=== PATIENT | female | born 1995 | race Caucasian/White ===

== ENCOUNTER 2019-01-07 12:18 | Emergency (ER) | payer BC, OTHER ==
[2019-01-07 13:36] LABS: ABS Eosinophils 0.1 10^3/ul (0-0.6); ABS Lymphocytes 1.5 10^3/ul (1.0-4.8); ABS Monocytes 0.5 10^3/ul (0-0.8); ABS Neutrophils 3.6 10^3/ul (1.5-7.7); Eosinophil % 1.8 %; Hematocrit 38 % (35-47); Hemoglobin 12.5 g/dL (12.0-16.0); Lymphocyte % 26.5 %; Mean Corpuscular HGB Conc 33 g/dL (31-36); Mean Corpuscular Hemoglobin 28 pg (27-31); Mean Corpuscular Volume 85 fL (80-97); Mean Platelet Volume 7.6 fL (7.4-10.4); Platelet Count 225 10^3/uL (150-450); Red Blood Count 4.43 10^6 /uL (3.70-4.87); Red Cell Distribution Width 14 % (10-15); White Blood Count 5.7 10^3/uL (3.5-10.8)
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
[2019-01-07 13:45] LABS: ALT 14 U/L (7-52); AST 18 U/L (13-39); Albumin 4.7 g/dL (3.2-5.2); Albumin/Globulin Ratio 1.5 (1-3); Alkaline Phosphatase 60 U/L (34-104); Anion Gap 5 mmol/L (2-11); BUN/Creatinine Ratio 11.3 (8-20); Blood Urea Nitrogen 7 mg/dL (6-24); CO2 Carbon Dioxide 29 mmol/L (22-32); Calcium 9.3 mg/dL (8.6-10.3); Chloride 105 mmol/L (101-111); EGFR African American 144.3 (>60); EGFR Non-African American 119.3 (>60); Globulin 3.1 g/dL (2-4); Glucose 78 mg/dL (70-100); Potassium 3.8 mmol/L (3.5-5.0); Sodium 139 mmol/L (135-145); Total Protein 7.8 g/dL (6.4-8.9)
[2019-01-07 13:50] LABS: Acetaminophen < 15 mcg/mL; Alcohol < 10 mg/dL (<10); Salicylate < 2.50 mg/dL (<30)
[2019-01-07 14:05] LABS: TSH (Thyroid Stimulating Horm) 1.29 mcIU/mL (0.34-5.60)
[2019-01-07 14:07] LABS: Urine Appearance Cloudy; Urine Bacteria Absent (Absent); Urine Bilirubin Negative (Negative); Urine Blood Negative (Negative); Urine Color Yellow; Urine Glucose Negative (Negative); Urine Ketones Negative (Negative); Urine Nitrite Negative (Negative); Urine Protein Negative (Negative); Urine Red Blood Cell 1+(3-5/hpf) (Absent); Urine Squamous Epithelial Cell Present (Absent); Urine Urobilinogen Negative (Negative); Urine White Blood Cell 1+(6-10/hpf) (Absent)
[2019-01-07 14:36] LABS: Urine Benzodiazepine Screen None Detected (None Detect); Urine Opiates Screen None Detected (None Detect)
[2019-01-07 17:30] VITALS: BP 115/69
== END 2019-01-07 17:29 | disposition home or self-care (01) ==
LOC: ED 12:18
DX: F43.25 Adjustment disorder with mixed disturbance of emotions and conduct (principal); Z79.899 Other long term (current) drug therapy; F50.9 Eating disorder, unspecified; F41.9 Anxiety disorder, unspecified; F32.9 Major depressive disorder, single episode, unspecified
CPT/HCPCS: 36415; 80053; 80307; 80320; 80329; 81003; 81015; 84443; 85025; 87086; 87088; 99284; G0480

== ENCOUNTER 2023-11-10 15:44 | Inpatient (IN) ==
[2023-11-10] MEDS ORDERED: Lidocaine 1% VIAL 10 MG/ML 30 ML VIAL INJ PRN (17:36)
[2023-11-10 18:28] LABS: Urine Benzodiazepine Screen None Detected (None Detect); Urine Cannabinoids Screen None Detected (None Detect); Urine Opiates Screen None Detected (None Detect)
[2023-11-10] MEDS: Dinoprostone 10 MG VAG.SUPP VAGINAL ONE (19:59)
[2023-11-10] MEDS: Lidocaine PATCH 5% PATCH TRANSDERM ONE (21:18)
[2023-11-11] MEDS ORDERED: Meperidine 50 mg/ml SYRINGE 1 ml IM ONE ×2 (01:24→01:49)
[2023-11-11] MEDS: Buffered Lidocaine 1% SYRIN 1 ml INTRADERM ONE (08:07)
[2023-11-11 08:51] LABS: ABS Eosinophils 0.2 10^3/uL (0.0-0.5); ABS Monocytes 0.8 10^3/uL (0.0-0.9); ABS Neutrophils 9.4 10^3/uL (1.5-7.6); Hematocrit 32.4 % (35-45); Hemoglobin 10.4 g/dL (11.5-14.3); Lymphocyte % 15.8 %; Mean Corpuscular Hemoglobin 26.1 pg (27-33); Mean Corpuscular Hgb Conc 32.2 g/dL (31-36); Mean Corpuscular Volume 80.9 fL (80-97); Mean Platelet Volume 8.2 fL (7.5-11.2); Platelet Count 283 10^3/uL (150-450); Red Cell Distribution Width 14.8 % (12-17); White Blood Count 12.4 10^3/uL (3.8-11.8)
[2023-11-11] MEDS: miSOPROStol 100 mcg TAB PO ONE ×3 (14:17→23:13)
[2023-11-12] MEDS: Ondansetron 4 mg VIAL 2 MG/ML 2 ml VIAL IV PRN (04:38)
[2023-11-12] MEDS: fentaNYL 100 mcg/2 ml 50 MCG/ML VIAL IV SLOW PU ONE (04:40)
[2023-11-12] MEDS: Lactated Ringers 1000 ml BAG 1,000 ML IV ONE (08:02)
[2023-11-12] MEDS: OBEPIDURAL (200 ML) 200 ML EPIDURAL ONE (08:21)
[2023-11-12] MEDS: Lactated Ringers 1000 ml BAG 1,000 ML IV SCH (09:32)
[2023-11-12 09:56] LABS: Urine Appearance Clear; Urine Bilirubin Negative (Negative); Urine Blood 1+ (Negative); Urine Color Light-Yellow; Urine Glucose Negative (Negative); Urine Ketones Negative (Negative); Urine Nitrite Negative (Negative); Urine Protein Negative (Negative); Urine Specific Gravity 1.014 (1.002-1.030); Urine Urobilinogen Negative (Negative)
[2023-11-12 09:58] LABS: Urine Bacteria Absent /HPF (Absent); Urine Red Blood Cell 3+(>10/hpf) /HPF (0-Trace); Urine White Blood Cell Trace(0-5/hpf) /HPF (0-Trace)
[2023-11-12] MEDS ORDERED: Sodium Citrate/Citric Acid LIQ 15 ML UDC PO PRN (10:42)
[2023-11-12] MEDS ORDERED: Phenylephrine 40 mcg/mL 10mL (400mcg) SYRINGE IV PUSH PRN ×2 (10:42)
[2023-11-12] MEDS: Oxytocin in LR 20,000 MILLI.UNIT/1,000 ML BAG IV SCH (16:47)
[2023-11-12] MEDS ORDERED: Glycerin ADULT 2.4 gm SUPP PR PRN (19:51)
[2023-11-12] MEDS ORDERED: Lactated Ringers 1000 ml BAG 1,000 ML IV SCH (20:00)
[2023-11-12] MEDS: Witch Hazel PAD JAR TOPICAL PRN (20:57)
[2023-11-12] MEDS: Dibucaine 1% OINT 28.35 GM TUBE PR PRN (20:57)
[2023-11-13] MEDS: Buffered Lidocaine 1% SYRIN 1 ml ONE (07:51)
[2023-11-13] MEDS: Lactated Ringers 1000 ml BAG 1,000 ML IV ONE (07:52)
[2023-11-13] MEDS: fentaNYL 100 mcg/2 ml 50 MCG/ML VIAL IV SLOW PU ONE (07:52)
[2023-11-13] MEDS: Lidocaine/Epinephrin 1.5%/200 5 ML AMP INJ ONE (07:52)
[2023-11-13] MEDS: Lactated Ringers 1000 ml BAG 1,000 ML IV SCH (07:52)
[2023-11-13] MEDS: OBEPIDURAL (200 ML) 200 ML EPIDURAL SCH (07:53)
[2023-11-13] MEDS: Oxytocin in LR 20,000 MILLI.UNIT/1,000 ML BAG IV SCH (07:53)
[2023-11-13 07:59] LABS: ABS Basophils 0.1 10^3/uL (0.0-0.1); ABS Eosinophils 0.2 10^3/uL (0.0-0.5); ABS Lymphocytes 3.6 10^3/uL (1.0-4.8); ABS Monocytes 1.2 10^3/uL (0.0-0.9); Eosinophil % 1.2 %; Hematocrit 30.5 % (35-45); Lymphocyte % 17.8 %; Mean Corpuscular Hemoglobin 26.8 pg (27-33); Mean Corpuscular Hgb Conc 32.7 g/dL (31-36); Mean Corpuscular Volume 81.9 fL (80-97); Mean Platelet Volume 8.3 fL (7.5-11.2); Platelet Count 268 10^3/uL (150-450); Red Blood Count 3.72 10^6/uL (3.63-4.92); Red Cell Distribution Width 15.2 % (12-17)
[2023-11-14 07:50] VITALS: BP 111/62
== END 2023-11-14 14:30 | disposition home or self-care (01) | DRG 805 ==
LOC: MCHOBOUT 15:44 → MCHOB 17:33
PROVIDERS: ADMIT Advanced Practice Midwife; ATTEND Obstetrics & Gynecology